=== PATIENT | female | born 1945 | race Two or more races ===

== ENCOUNTER → 2019-02-24 | Day surgery (SDC) | payer OTHER ==
[~2019-02-24] MED LIST: AMILODIPINE PO; ASA81 MG; FORTAMET500 MG PO; GLYBURIDE5 MG NGT; HYDRALAZINE HCL25 MG PO; OMEPRAZOLE MAGN20 MG PO; SIMVASTATIN20 MG PO; XARELTO20 MG PO; [UNRECOGNIZED DRUG - OTHER] PO
== END | disposition home or self-care (01) ==
LOC: ADM 02-20 08:00 → CIR.AMB 07:31
DX: S63.094A Other dislocation of right wrist and hand, initial encounter (principal)

== ENCOUNTER 2019-10-20 04:30 | Day surgery (SDC) | payer OTHER | END 2019-10-20 12:00 | disposition home or self-care (01) | LOC: CIR.AMB 04:30 | DX: M19.031 Primary osteoarthritis, right wrist (principal) | CPT/HCPCS: 25446; 20902; 25312; 25830; C1776 ==

== ENCOUNTER 2020-06-07 06:00 | Day surgery (SDC) | payer OTHER | END 2020-06-07 17:55 | disposition home or self-care (01) | LOC: CIR.AMB 06:00 → ADM 10:45 → CIR.AMB 17:55 | PROVIDERS: ATTEND Orthopaedic Surgery Hand Surgery | DX: M19.031 Primary osteoarthritis, right wrist (principal); Z20.828 Contact with and (suspected) exposure to other viral communicable diseases ==